=== PATIENT | female | born 1975 | race Caucasian/White ===

== ENCOUNTER 2022-01-06 06:49 | Emergency (ER) | payer OTHER ==
[~2022-01-06] VITALS: Ht 160 cm; Wt 59.0 kg
[2022-01-06 06:51] VITALS: BP 107/69
[2022-01-06 09:09] LABS: BASOPHILS % 0.5 % (0.0-2.0); EOSINOPHILS % 1.5 % (0.0-5.0); HEMATOCRIT. 35.4 % (36.0-48.0); HEMOGLOBIN. 11.6 g/dL (12.0-16.0); LYMPHOCYTES % 33.2 % (20.0-50.0); MEAN CORPUSCULAR HEMOGLOBIN 27.2 pg (28.0-32.0); MEAN CORPUSCULAR VOLUME 83.2 fL (81.0-99.0); MEAN PLATELET VOLUME 7.4 fl (7.4-10.4); MONOCYTES % 7.4 % (2.0-8.0); NEUTROPHILS % 57.4 % (40.0-76.0); PLATELET 437 x1000/uL (130-400); RED BLOOD CELL COUNT 4.26 mill/uL (4.2-5.4); RED CELL DISTRIBUTION WIDTH 14.5 % (11.6-14.6)
[2022-01-06 10:34] LABS: CHLORIDE 104 mEq/L (98-107)
== END 2022-01-06 11:02 | disposition home or self-care (01) ==
LOC: ER 06:49
DX: S09.8XXA Other specified injuries of head, initial encounter (principal); W22.8XXA Striking against or struck by other objects, initial encounter; Y93.89 Activity, other specified; Y92.89 Other specified places as the place of occurrence of the external cause; Y99.8 Other external cause status; F31.9 Bipolar disorder, unspecified; F20.9 Schizophrenia, unspecified
CPT/HCPCS: 36415; 80053; 82962; 85025; 93005; 99285

== ENCOUNTER 2022-01-08 10:16 | Emergency (ER) | payer OTHER ==
[~2022-01-08] VITALS: Ht 160 cm; Wt 57.0 kg
[2022-01-08] MEDS ORDERED: OLANZAPINE 10 MG/VIAL IM ONE (10:30)
[2022-01-08] MEDS ORDERED: LORAZEPAM 2MG/ML CPJ IM ONE (10:30)
[2022-01-08] MEDS ORDERED: SODIUM CHLORIDE 0.9% 1,000 ML IV ONE ×3 (10:30→16:15)
[2022-01-08 11:37] LABS: BASOPHILS % 0.3 % (0.0-2.0); EOSINOPHILS % 2.3 % (0.0-5.0); HEMOGLOBIN. 10.1 g/dL (12.0-16.0); LYMPHOCYTES % 34.2 % (20.0-50.0); MEAN CORPUSCULAR VOLUME 82.5 fL (81.0-99.0); MEAN PLATELET VOLUME 6.7 fl (7.4-10.4); MONOCYTES % 10.9 % (2.0-8.0); NEUTROPHILS % 52.3 % (40.0-76.0); PLATELET 356 x1000/uL (130-400); RED BLOOD CELL COUNT 3.75 mill/uL (4.2-5.4); RED CELL DISTRIBUTION WIDTH 14.1 % (11.6-14.6)
[2022-01-08 11:44] LABS: CHLORIDE 111 mEq/L (98-107)
[2022-01-08 11:51] LABS: ETHANOL BLOOD < 10 mg/dL
[2022-01-08 12:01] LABS: HCG SCREEN NEGATIVE
[2022-01-08] MEDS ORDERED: OLANZAPINE 10 MG/VIAL IM NR (13:15)
[2022-01-08 15:22] LABS: CLARITY URINE CLOUDY (CLEAR); COLOR URINE YELLOW (YELLOW); KETONES URINE NEGATIVE (NEGATIVE); LEUKOCYTE ESTERASE URINE 2+ (NEGATIVE); NITRITE URINE NEGATIVE (NEGATIVE); OCCULT BLOOD URINE 1+ (NEGATIVE); PH URINE 5.5 (4.5-8.0); PROTEIN URINE 1+ (NEGATIVE); SPECIFIC GRAVITY URINE 1.027 (1.005-1.030)
[2022-01-08 15:48] LABS: *BARBITURATES SCREEN URINE NEGATIVE (NEGATIVE); *BENZODIAZEPINES SCREEN URINE NEGATIVE (NEGATIVE)
[2022-01-08 15:49] LABS: METHADONE URINE SCREEN NEGATIVE (NEGATIVE); PHENCYCLIDINE URINE SCREEN NEGATIVE (NEGATIVE)
[2022-01-08 15:52] LABS: *AMPHETAMINES SCREEN URINE PRESUMTIVE POSITIVE (NEGATIVE)
[2022-01-08 15:53] LABS: *COCAINE SCREEN URINE PRESUMTIVE POSITIVE (NEGATIVE); CANNABINOID URINE SCREEN PRESUMTIVE POSITIVE (NEGATIVE); OPIATES URINE SCREEN PRESUMTIVE POSITIVE (NEGATIVE)
[2022-01-08] MEDS ORDERED: CEFTRIAXONE 1 G PREMIX 50 ML IV NR (16:15)
[2022-01-09] MEDS: OLANZAPINE 5MG TABLET ODT PO SCH (17:00)
[2022-01-10] MEDS ORDERED: LORAZEPAM 2MG/ML CPJ IM STA (07:25)
[2022-01-10] MEDS ORDERED: OLANZAPINE 10 MG/VIAL IM ONE (07:30)
[2022-01-10] MEDS ORDERED: LEVOFLOXACIN 250MG TABLET PO ONE (07:45)
[2022-01-10] MEDS: OLANZAPINE 5MG TABLET ODT PO SCH (09:00)
[2022-01-10 15:39] VITALS: BP 120/70
== END 2022-01-10 15:59 ==
LOC: ER 10:33
DX: F15.10 Other stimulant abuse, uncomplicated (principal); R51.9 Headache, unspecified; Z20.822 Contact with and (suspected) exposure to COVID-19
CPT/HCPCS: 36415; 70450; 80053; 80305; 80307; 80320; 80329; 81003; 84703; 85025; 87086; 96361; 96365; 96372; 99285; C9803; J2060; J3490; J7030; U0003; U0005; G0480